=== PATIENT | female | born 1975 | race Caucasian/White ===

== ENCOUNTER 2024-10-15 12:29 | Emergency (ER) | payer MEDICAID ==
[~2024-10-15] VITALS: Ht 165.1 cm; Wt 108.0 kg
[2024-10-15 13:06] VITALS: TEMP 98.4
[2024-10-15 16:36] LABS: RAPID GROUP A STREP NEGATIVE (NEGATIVE)
[2024-10-15 16:46] LABS: INFLUENZA TYPE A NEGATIVE FOR TYPE A (NEGATIVE); INFLUENZA TYPE B NEGATIVE FOR TYPE B (NEGATIVE)
[2024-10-15] MEDS ORDERED: MOXI3DRO25 OU (16:51)
[2024-10-15] MEDS ORDERED: AMOX250C4 PO (16:51)
[2024-10-15 16:55] VITALS: BP 128/77; PULSE 94; RESP 18; O2SAT 98
== END 2024-10-15 17:05 | disposition home or self-care (01) ==
LOC: EMS 12:31
DX: J02.0 Streptococcal pharyngitis (principal); H10.9 Unspecified conjunctivitis; E11.9 Type 2 diabetes mellitus without complications; I10 Essential (primary) hypertension; Z88.1 Allergy status to other antibiotic agents; Z88.2 Allergy status to sulfonamides; Z88.3 Allergy status to other anti-infective agents
CPT/HCPCS: 87430; 87804; 99283